=== PATIENT | female | born 1970 | race Caucasian/White ===

== ENCOUNTER 2017-11-16 14:44 | Observation (INO) | payer OTHER ==
[~2017-11-16 14:44] MED LIST: LIDOCAINE 1% (MDV) 20 ML INJ; PROVENTIL HFA 6.7GM INHALER
[2017-11-16] MEDS: ONDANSETRON 4 MG INJ IV (17:54)
[2017-11-16] MEDS ORDERED: LIDOCAINE 1% (MDV) 20 ML INJ (19:07)
[2017-11-16] MEDS ORDERED: MIDAZOLAM 1 MG/ML 2 ML INJ (19:07)
[2017-11-16] MEDS ORDERED: PROPOFOL 20 ML (19:07)
[2017-11-16] MEDS: BUPIVACAINE 0.5% (SDV) 30 ML INJ (19:31)
[2017-11-16] MEDS: POLYMYXIN/BACITRACIN 1L IRRIG (19:33)
[2017-11-16] MEDS ORDERED: CEFAZOLIN 1 GM INJ (19:36)
[2017-11-16] MEDS ORDERED: ONDANSETRON 4 MG INJ (19:36)
[2017-11-16] MEDS ORDERED: FAMOTIDINE 20 MG INJ (19:36)
[2017-11-16] MEDS ORDERED: NITROGLYCERIN (SL) 0.4 MG TAB (19:55)
[2017-11-16] MEDS ORDERED: morphine (1 MG/ML) 10ML SYRINGE IV (19:56)
[2017-11-16] MEDS ORDERED: METOPROLOL 5 MG INJ (19:56)
[2017-11-16 20:49] LABS: TROPONIN-I < 0.012 ng/ml (0.00-0.12)
[2017-11-16] MEDS ORDERED: ACETAMINOPHEN 325 MG TAB PO (22:30)
[2017-11-16] MEDS ORDERED: HYDROCODONE/APAP (5/325) TAB PO (22:30)
[2017-11-16] MEDS: morphine 2 MG INJ IV (23:29)
[2017-11-17] MEDS: morphine 2 MG INJ IV ×3 (03:02→11:49)
[2017-11-17 05:02] LABS: ADD MAN DIFF? NO
[2017-11-17 05:04] LABS: WHITE BLOOD COUNT 8.3 10^3/ul (4.8-10.8)
[2017-11-17 05:04] LABS: BASOPHILS % 0.5 % (0.0-2.0); EOSINOPHILS # 0.3 10^3/ul (0.0-0.5); HEMATOCRIT 33.5 % (37.0-47.0); HEMOGLOBIN 11.3 g/dl (12.0-16.0); LYMPHOCYTES % 23.7 % (15.0-51.0); MEAN CORPUSCULAR HEMOGLOBIN 28.3 pg (29.0-33.0); MEAN CORPUSCULAR HGB CONC 33.7 g/dl (32.0-37.0); MEAN CORPUSCULAR VOLUME 83.8 fl (82.0-101.0); MEAN PLATELET VOLUME 9.7 fl (7.4-10.4); MONOCYTE # 0.7 10^3/ul (0.3-0.9); MONOCYTES % 8.6 % (0.0-11.0); NEUTROPHIL # 5.3 10^3/ul (1.6-7.5); PLATELET COUNT 334 10^3/UL (140-415); RED CELL DISTRIBUTION WIDTH 14.8 % (11.5-14.5)
[2017-11-17 05:23] LABS: ANION GAP 14 (8-16); BLOOD UREA NITROGEN 11 mg/dl (7-20); CALCIUM 8.7 mg/dl (8.4-10.2); CARBON DIOXIDE 24 mmol/L (21-31); CHLORIDE 107 mmol/L (97-110); CREATININE 0.79 mg/dl (0.44-1.00); GLUCOSE 112 mg/dl (70-220); POTASSIUM 3.7 mmol/L (3.5-5.1); SODIUM 141 mmol/L (135-144)
[2017-11-17] MEDS: CEFAZOLIN 2 GM/50 ML (PMX) 50 ML IVPB (07:08)
[2017-11-17] MEDS: ONDANSETRON 4 MG INJ IV (09:24)
[2017-11-17] MEDS: SALMETEROL/FLUTICASONE 250/50 INHA INH (15:51)
[2017-11-17] MEDS: ALBUTEROL HFA 8 GM INHALER INH (15:52)
[2017-11-17] MEDS: morphine 4 MG/ML VIAL IV ×2 (15:52→20:05)
[2017-11-18] MEDS ORDERED: PREGABALIN 75 MG CAP PO (09:00)
[2017-11-18] MEDS ORDERED: VALSARTAN 80 MG TAB PO (09:00)
== END 2017-11-17 20:45 | disposition home or self-care (01) ==
LOC: SDS 14:44 → MS3 21:31 → SDS 22:56 → MS3 21:39
PROVIDERS: Internal Medicine
DX: T84.84XA Pain due to internal orthopedic prosthetic devices, implants and grafts, initial encounter (principal); Y83.8 Other surgical procedures as the cause of abnormal reaction of the patient, or of later complication, without mention of misadventure at the time of the procedure; E03.9 Hypothyroidism, unspecified; E78.5 Hyperlipidemia, unspecified; E66.9 Obesity, unspecified; Z68.41 Body mass index [BMI] 40.0-44.9, adult; J45.909 Unspecified asthma, uncomplicated; I50.30 Unspecified diastolic (congestive) heart failure
CPT/HCPCS: 20680; 73620; 73630; 80048; 84484; 85025; 88300; 93005

== ENCOUNTER → 2019-06-02 | Outpatient (CLI) | payer OTHER ==
[2019-06-02] MEDS: METOPROLOL 100 MG TAB (10:39)
[2019-06-02] MEDS: METOPROLOL (XL) 100 MG TAB PO (10:43)
[2019-06-02] MEDS: DIPHENHYDRAMINE 50 MG INJ (12:54)
[2019-06-02] MEDS: METOPROLOL 5 MG INJ (13:27)
[2019-06-02] MEDS: DIPHENHYDRAMINE 50 MG INJ IV (13:30)
[2019-06-02] MEDS: NITROGLYCERIN AEROSOL (4.9 GM) (13:47)
[2019-06-02] MEDS: SOD CHLORIDE 0.9% 100 ML ×2 (13:50→14:39)
[2019-06-02] MEDS: IOHEXOL 100 ML ×2 (13:50→14:40)
[2019-06-02] MEDS: LABETALOL HCL 20MG INJ (14:09)
[2019-06-02] MEDS: LABETALOL HCL 20MG INJ IV (15:02)
[2019-06-02] MEDS: NITROGLYCERIN AEROSOL (4.9 GM) SL (15:04)
== END | disposition home or self-care (01) ==
LOC: C/S 10:07
DX: R07.9 Chest pain, unspecified (principal); R06.02 Shortness of breath
CPT/HCPCS: 75571; 75571-59; 75574